=== PATIENT | male | born 1995 | race Caucasian/White ===

== ENCOUNTER 2016-12-05 11:31 | Emergency (ER) | payer BC ==
[2016-12-05 12:06] VITALS: BP 107/63
[2016-12-05] MEDS ORDERED: Amoxicillin/Clavulanate TAB* 875 MG PO ONE (12:16)
--- NOTE | 2016-12-05 12:18 | UC ---
Bite Injury/Animal HPI - HPI Summary HPI Summary: cat bite yesterday day to right thumb---red warm and swollen nom no streaking + ROM - History of Current Complaint Chief Complaint: UC Stated Complaint: CAT BIT TO HAND Time Seen by Provider: 12/05/16 12:09 Hx Obtained From: Patient Severity Currently: Mild Severity Initially: Moderate Pain Intensity: 5 Pain Scale Used: 0-10 Numeric Onset/Duration: Sudden Onset, Lasting Days - 1, Still Present Type of Bite: Animal Has Animal Been Immunized?: Yes Character: Puncture Aggravating Factor(s): Exertion Alleviating Factor(s): Rest Associated Signs And Symptoms: Positive: Erythema. Negative: Lymphadenopathy Hx of Bite: Provoked by: - trying to put cat outside Animal Available for Observation: Yes Animal Control Notified: Yes - Allergies/Home Medications Allergies/Adverse Reactions: Allergies Allergy/AdvReac Type Severity Reaction Status Date / Time No Known Allergies Allergy Verified 12/05/16 11:59 PMH/Surg Hx/FS Hx/Imm Hx Previously Healthy: Yes - Surgical History Surgical History: None - Family History Known Family History: Positive: Unknown - unable to obtain, patient is manic and intoxicated - Social History Occupation: Employed Full-time Lives: With Family Alcohol Use: Occasionally Alcohol Amount: unknown Substance Use Type: Other Substance Use Comment - Amount & Last Used: not currently Smoking Status (MU): Former Smoker - Immunization History Most Recent Influenza Vaccination: doesn't get Review of Systems Constitutional: Negative Skin: Other - redness and swelling right thumb Eyes: Negative ENT: Negative Respiratory: Negative Cardiovascular: Negative Gastrointestinal: Negative Genitourinary: Negative Motor: Negative Neurovascular: Negative Musculoskeletal: Arthralgia - right thumb Neurological: Negative Psychological: Negative All Other Systems Reviewed And Are Negative: Yes Physical Exam Triage Information Reviewed: Yes Appearance: Well-Appearing, No Pain Distress, Well-Nourished Vital Signs: Initial Vital Signs Temp 98.4 F 12/05/16 12:00 Pulse 83 12/05/16 12:00 Resp 17 12/05/16 12:00 BP 107/63 12/05/16 12:00 Pulse Ox 99 12/05/16 12:00 Vital Signs Reviewed: Yes Eye Exam: Normal Eyes: Positive: Conjunctiva Clear ENT Exam: Normal ENT: Positive: Normal ENT inspection, Hearing grossly normal, Pharynx normal, Pharyngeal erythema, TMs normal, Tonsillar swelling, Tonsillar exudate, Trismus , Muffled/hoarse voice. Negative: Nasal congestion, Nasal drainage, TM bulging Dental Exam: Normal Neck exam: Normal Neck: Positive: Supple, Nontender, No Lymphadenopathy Respiratory Exam: Normal Respiratory: Positive: Chest non-tender, Lungs clear, Normal breath sounds, No respiratory distress, No accessory muscle use Cardiovascular Exam: Normal Cardiovascular: Positive: RRR, No Murmur, Pulses Normal, Brisk Capillary Refill Abdominal Exam: Normal Abdomen Description: Positive: Nontender, No Organomegaly, Soft Musculoskeletal Exam: Other Musculoskeletal: Positive: ROM Intact, Strength Limited @ - right thumb, Edema @ - right thumb Neurological Exam: Normal Neurological: Positive: Alert, Muscle Tone Normal Psychological Exam: Normal Skin: Positive: Other - two punture wound on thenar eminence Bite Injury Course/Dx - Course Course Of Treatment: splint heat, warm soaks, augmentin, (tetnus up to date), follow with orthopedic med - Differential Dx/Diagnosis Differential Diagnosis/HQI/PQRI: Cellulitis, Joint Space Infection, Puncture, Superficial Infection, Deep Space Infection Provider Diagnoses: Punture wound from cat bite right hand, Discharge - Discharge Plan Condition: Stable Disposition: HOME Prescriptions: Amoxicillin/Clavulanate TAB* [Augmentin TAB 875*] 875 mg PO BID #19 tab Patient Education Materials: Amoxicillin/Clavulanate Potassium (By mouth), Animal Bite (ED), Heat Pack Application (ED) Referrals: Tess Marquez MD [Medical Doctor] - 3 Days Gallo Cristobal MD [Primary Care Provider] -
== END 2016-12-05 12:30 | disposition home or self-care (01) ==
LOC: UCEAST 11:31
DX: S61.031A Puncture wound without foreign body of right thumb without damage to nail, initial encounter (principal); W55.01XA Bitten by cat, initial encounter; Z87.891 Personal history of nicotine dependence
CPT/HCPCS: 99213; A9270-GY; G0463

== ENCOUNTER 2020-02-07 16:34 | Inpatient (IN) | payer BC, OTHER ==
--- NOTE | 2020-02-07 16:48 | ED ---
Psychiatric Complaint - HPI Summary HPI Summary: 24 y/o M [place] [facility] [place] Dr. Arndt who knows patient's mother. Patient has been very tangential and psychotic recently. Mother brought patient here to be evaluated. Upon arrival to the ED, patient refused to get out of car. Dr. Arndt placed patient on 55 status. LEVEL 5 CAVEAT Further hx is limited as patient is tangential and refusing to participate. - History Of Current Complaint Chief Complaint: EDMentalHealth Time Seen by Provider: 02/07/20 16:35 Hx Obtained From: Other: - Dr. Arndt Onset/Duration: Still Present - Allergies/Home Medications Allergies/Adverse Reactions: Allergies Allergy/AdvReac Type Severity Reaction Status Date / Time No Known Allergies Allergy Verified 12/05/16 11:59 Home Medications: Home Medications Unobtainable 02/07/20 [History Confirmed 02/07/20] PMH/Surg Hx/FS Hx/Imm Hx Previously Healthy: No - LEV 5 CAV PMHx is limited b/c patient is tangential, refusing to participat - Surgical History Surgery Procedure, Year, and Place: LEVEL 5 CAVEAT Surgical hx is limited as patient is tangential and refusing to participate in conversation - Immunization History Date of Influenza Vaccine: no Infectious Disease History: No Infectious Disease History: Denies: Traveled Outside the [place] in Last 30 Days - Family History Family History: LEVEL 5 CAVEAT FHx is limited as patient is tangential and refusing to participate in conversation - Social History Alcohol Use: Occasionally Hx Substance Use: Yes Substance Use Type: Reports: Cocaine, Marijuana Smoking Status (MU): Unknown if Ever Smoked Review of Systems - ROS Summary Review of Systems Summary: LEVEL 5 CAVEAT ROS is limited as patient is tangential and refusing to participate Positive: Other - tangential and psychotic All Other Systems Reviewed And Are Negative: No Physical Exam - Summary Physical Exam Summary: General: Well appearing, no distress HEENT: PERRL Cardiovascular: Skin is well perfused Pulmonary: No respiratory distress, no tachypnea Abdomen: Non-distended Skin: Warm, pink, dry MSK: No edema Psych: Pressured speech, tangential Neuro: A&Ox3 Triage Information Reviewed: Yes Vital Signs On Initial Exam: Initial Vitals Temp Pulse Resp BP Pulse Ox 98.5 F 86 18 165/96 98 02/07/20 16:36 02/07/20 16:36 02/07/20 16:36 02/07/20 16:36 02/07/20 16:36 Vital Signs Reviewed: Yes Procedures - Sedation Patient Received Moderate/Deep Sedation with Procedure: No Diagnostics - Vital Signs Vital Signs Temp Pulse Resp BP Pulse Ox 02/07/20 16:36 98.5 F 86 18 165/96 98 - Laboratory Result Diagrams: 02/07/20 16:41 Lab Statement: Any lab studies that have been ordered have been reviewed, and results considered in the medical decision making process. Re-Evaluation - Re-Evaluation First Eval Re-Evaluation Time: 16:45 - Patient is medically cleared for MHE Course/Dx - Course Course Of Treatment: Patient presenting for mental health clearance. Patient has no active medical conditions warrantly further w/u, vital signs are stable. Patient placed in mental health gown and placed on observation. We'll obtain mental health evaluation. - Differential Dx/Clinical Impression Provider Diagnosis: Unspecified psychosis - Physician Notifications Discussed Care Of Patient With: Lazaro Arndt Time Discussed With Above Provider: 16:52 Instructed by Provider To: Admit As Inpatient - Critical Care Time Critical Care Statement: Critical care time is provided exclusive of any time spent performing procedures. Discharge ED - Sign-Out/Discharge Documenting (check all that apply): Patient Departure - Discharge Plan Condition: Stable [place] [place]errals: Rashad Fleming, HAND PICKER [Primary Care Provider] - - Billing Disposition and Condition Condition: STABLE Disposition: [place]iatric [place] [facility] [place] Attestation Statements Document Initiated by Scribe: Yes Documenting Scribe: Audra Mariee Provider For Whom Aditya is Documenting (Include Credential): Raul Braxton MD Scribe Attestation: Audra Mg, scribed for Raul Braxton MD on 02/07/20 at 1741. Scribe Documentation Reviewed: Yes Provider Attestation: The documentation as recorded by the Audra navarro accurately reflects the service I personally performed and the decisions made by ny, Raul Braxton MD Status of Scribe Document: Viewed
[2020-02-07] MEDS ORDERED: Acetaminophen TAB* 325 MG PO PRN (16:52)
[2020-02-07] MEDS ORDERED: Al Hydrox/Mg Hydrox/Simet LIQ* 30 ML UDC PO PRN (16:52)
[2020-02-07 17:17] LABS: Urine Appearance Clear; Urine Bilirubin Negative (Negative); Urine Blood Negative (Negative); Urine Color Colorless; Urine Glucose Negative (Negative); Urine Ketones Trace (Negative); Urine Nitrite Negative (Negative); Urine Protein Negative (Negative); Urine Specific Gravity 1.001 (1.010-1.030); Urine Urobilinogen Negative (Negative)
[2020-02-07 17:25] LABS: ABS Lymphocytes 1.4 10^3/ul (1.0-4.8); ABS Monocytes 0.8 10^3/ul (0-0.8); ABS Neutrophils 4.6 10^3/ul (1.5-7.7); Eosinophil % 0.4 %; Hematocrit 43 % (42-52); Hemoglobin 14.8 g/dL (14.0-18.0); Lymphocyte % 20.8 %; Mean Corpuscular HGB Conc 34 g/dL (31-36); Mean Corpuscular Hemoglobin 32 pg (27-31); Mean Corpuscular Volume 94 fL (80-94); Mean Platelet Volume 8.3 fL (7.4-10.4); Platelet Count 244 10^3/uL (150-450); Red Blood Count 4.58 10^6 /uL (4.18-5.48); Red Cell Distribution Width 13 % (10-15); White Blood Count 6.8 10^3/uL (3.5-10.8)
[2020-02-07 17:32] LABS: Urine Benzodiazepine Screen None Detected (None Detect); Urine Opiates Screen None Detected (None Detect)
[2020-02-07 17:42] LABS: ALT 15 U/L (7-52); AST 26 U/L (13-39); Albumin 4.5 g/dL (3.2-5.2); Albumin/Globulin Ratio 1.7 (1-3); Alkaline Phosphatase 51 U/L (34-104); Anion Gap 8 mmol/L (2-11); BUN/Creatinine Ratio 10.8 (8-20); Blood Urea Nitrogen 7 mg/dL (6-24); CO2 Carbon Dioxide 27 mmol/L (22-32); Calcium 9.1 mg/dL (8.6-10.3); Chloride 101 mmol/L (101-111); EGFR African American 181.1 (>60); EGFR Non-African American 149.7 (>60); Globulin 2.6 g/dL (2-4); Glucose 95 mg/dL (70-100); Potassium 3.7 mmol/L (3.5-5.0); Sodium 136 mmol/L (135-145); Total Protein 7.1 g/dL (6.4-8.9)
[2020-02-07 17:59] LABS: Acetaminophen < 15 mcg/mL; Alcohol < 10 mg/dL (<10); Salicylate < 2.50 mg/dL (<30)
[2020-02-07 18:13] LABS: TSH (Thyroid Stimulating Horm) 0.61 mcIU/mL (0.34-5.60)
[2020-02-07] MEDS: Haloperidol TAB* 5 MG PO PRN (20:39)
[2020-02-07] MEDS: LORazepam TAB(*) 1 MG PO PRN (22:12)
[2020-02-07] MEDS: diPHENhydraMINE PO* 50 MG PO PRN (22:13)
[2020-02-08 08:04] LABS: HDL Cholesterol 54.1 mg/dL
[2020-02-08] MEDS: diPHENhydraMINE PO* 50 MG PO PRN (12:00)
[2020-02-08] MEDS: LORazepam TAB(*) 1 MG PO PRN (12:00)
[2020-02-08] MEDS: Haloperidol TAB* 5 MG PO PRN (12:00)
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
--- NOTE | 2020-02-09 11:25 | PN ---
Subjective - Subjective Date of Service: 02/09/20 Service Type: 00168 Hosp care 25 min moderate complexity Subjective: Lexie appears much more euthymic today and has some insight into his recent bizarre behavior. "Yeah, I'm not sure what happened. I know I slowly got caught up in my head and started spiraling downward. It happened so slow that it's like I didn't even notice it happening." He is aware that this is the 3rd psychotic episode of his adulthood and shows appropriate concern for that. He is not interested in prophylactic antipsychotic treatment and also declines psychotherapy, saying "I'm not sure I want to go through a process like that to rewire my head. I feel like I've been rewired enough from this experience." He is willing to discontinue cannabis use, however, saying "I'll go throw it in the byers if you say that's what will help." In terms of precipitating stressors , he acknowledges that the recent of his maternal grandfather was a huge blow to him. "I spent so much time with him. He was always there for me." Lexie misses his grandfather a great deal and becomes tearful discussing his passing. Objective - General Observations Appearance: Well Groomed Appears Stated Age: Yes Stature: WNL Posture: WNL Eye Contact: Average Behavior/Activity: WNL - Interaction Observations Attitude Towards Examiner: Cooperative Stated Mood: Euthymic Affect: Full Speech Pattern/Tone: Clear, Appropriate Thought Process: Coherent Perception: WNL Thought Content: WNL Hallucination Type: None Delusion Type: None - Cognitive Function Orientation: A&O x 4 Level of Consciousness: Awake Cognition: WNL Estimated Intelligence: Normal Insight: WNL Judgment Within Normal Limits: Yes - Medication Compliance Cooperative with Inpatient Medication Regimen: Yes - Group Participation Participates in Group Activities: Yes Assessment - Assessment Merits Inpatient Hospitalization: Consolidate Improvements, Pending Safe DC Plan Inpatient DSM-V Dx: F29 Clinical Impression: 24 y.o. single, white male with a history of two prior brief psychotic episodes brought to the hospital by his mother and placed on a 9.55 involuntary legal status due to several days of bizarre, disorganized behavior. BSU: Problem List - Patient Problems (1) Unspecified psychosis not due to a substance or known physiological condition Current Visit: Yes Status: Acute Priority: High Code(s): F29 - UNSP PSYCHOSIS NOT DUE TO A SUBSTANCE OR KNOWN PHYSIOL COND SNOMED Code(s): 852309104 Plan - Plan Treatment Plan: Name: LEXIE BASILIO Birthdate: 1995 [id number] The patient is improving without scheduled antipsychotic, which is consistent with his history of recovering spontaneously from previous episodes. We will target tomorrow (02/09) for discharge if he continues on this trajectory. He should consider stopping cannabis usage and starting outpatient psychotherapy to prevent future relapses. Continued Medication Management: Consider Medication Medications: Current Medications Acetaminophen (Tylenol Tab*) 650 mg PO Q4H PRN PRN Reason: for pain; or Temp >101 F Al Hydrox/Mg Hydrox/Simethicone (Maalox Plus*) 30 ml PO Q4H PRN PRN Reason: INDIGESTION Diphenhydramine HCl (Benadryl Po*) 50 mg PO Q6H PRN PRN Reason: AGITATION Last Admin: 02/08/20 12:00 Dose: 50 mg Haloperidol (Haldol Tab*) 5 mg PO Q6H PRN PRN Reason: AGITATION Last Admin: 02/08/20 12:00 Dose: 5 mg Lorazepam (Ativan Tab(*)) 2 mg PO Q6H PRN PRN Reason: ANXIETY Last Admin: 02/08/20 12:00 Dose: 2 mg - Discharge Plan Discharge Plan: Outpatient Follow Up
--- NOTE | 2020-02-09 13:48 | PN ---
BSU: Group Therapy Note - Service Type Service Type: 91732 Group Psychotherapy - Cognitive Behavioral Group Therapy ( CBT):Patient was attentive and participatory in CBT programming this morning, and remained in good behavioral control. Patient expressed positive insights regarding relevant treatment interventions and goals.
[2020-02-10] MEDS: Haloperidol TAB* 5 MG PO PRN (08:40)
[2020-02-10] MEDS: diPHENhydraMINE PO* 50 MG PO PRN (08:40)
[2020-02-10] MEDS: LORazepam TAB(*) 1 MG PO PRN (08:40)
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
[2020-02-10] MEDS ORDERED: Nicotine PATCH 14 MG/24 HR* PATCH ONE (18:09)
[2020-02-10] MEDS ORDERED: Nicotine* 2MG (FRUIT FLAVOR) GUM PO PRN (18:31)
[2020-02-11] MEDS: Nicotine PATCH 14 MG/24 HR* PATCH TRANSDERM SCH (09:24)
--- NOTE | 2020-02-11 15:41 | PN ---
Subjective - Subjective Date of Service: 02/11/20 Service Type: 42680 Hosp care 25 min moderate complexity Subjective: Lexie was seen in his room. He was standing in the middle of his room with a piece of paper and paid very little attention to me. Asked whether I was a psychiatrist. Then he told me he didn't believe in [employer] science and wanted me to leave as he had nothing to talk about. Objective - General Observations Appearance: Disheveled Appears Stated Age: Yes Stature: Tall Posture: WNL Eye Contact: Avoidant Behavior/Activity: Peculiar - Interaction Observations Attitude Towards Examiner: Uncooperative, Evasive, Dismissive Stated Mood: Dysphoric Affect: Restricted Speech Pattern/Tone: Inappropriate Thought Process: Disorganized Perception: WNL Thought Content: Paranoid Hallucination Type: Denies Delusion Type: Grandeur - Cognitive Function Orientation: Person, Place, Situation Level of Consciousness: Awake, Alert Cognition: Impaired Attention/Concentration Estimated Intelligence: Normal Insight: Difficulty Acknowledging Presence of Psyciatric Problems Judgment Within Normal Limits: No Ability to Make Reasonable Decisions: Serverely Impaired - Medication Compliance Cooperative with Inpatient Medication Regimen: No - Group Participation Participates in Group Activities: No Assessment - Assessment Merits Inpatient Hospitalization: For Ongoing Evaluation, Consolidate Improvements, Pending Safe DC Plan Inpatient DSM-V Dx: F29 Clinical Impression: 24 y.o. single, white male with a history of two prior brief psychotic episodes brought to the hospital by his mother and placed on a 9.55 involuntary legal status due to several days of bizarre, disorganized behavior. Plan - Plan Treatment Plan: Name: LEXIE BASILIO Birthdate: 1995 [id number] The patient remains intermittently psychotic and bizarre. His previous episodes spontaneously resolved so we are treating conservatively with only prn meds. We will target Thursday (02/12) for discharge if he improves over the weekend. He should consider stopping cannabis usage and starting outpatient psychotherapy to prevent future relapses. Continued Medication Management: Consider Medication Medications: Current Medications Acetaminophen (Tylenol Tab*) 650 mg PO Q4H PRN PRN Reason: for pain; or Temp >101 F Al Hydrox/Mg Hydrox/Simethicone (Maalox Plus*) 30 ml PO Q4H PRN PRN Reason: INDIGESTION Diphenhydramine HCl (Benadryl Po*) 50 mg PO Q6H PRN PRN Reason: AGITATION Last Admin: 02/10/20 08:40 Dose: 50 mg Haloperidol (Haldol Tab*) 5 mg PO Q6H PRN PRN Reason: AGITATION Last Admin: 02/10/20 08:40 Dose: 5 mg Lorazepam (Ativan Tab(*)) 2 mg PO Q6H PRN PRN Reason: ANXIETY Last Admin: 02/10/20 08:40 Dose: 2 mg Nicotine (Nicotine Patch 14 Mg/24 Hr*) 1 patch TRANSDERM DAILY [facility] Last Admin: 02/11/20 09:24 Dose: Not Given Nicotine Polacrilex (Nicotine Gum*) 2 mg PO Q2H PRN PRN Reason: CRAVING Pharmacy Profile Note (Nicotine Patch Removal Note*) 1 note PATCH OFF [address] [facility] - Discharge Plan Discharge Plan: Outpatient Follow Up [facility]
[2020-02-11] MEDS: Nicotine Patch Removal NOTE PATCH OFF SCH (20:03)
[2020-02-11] MEDS: diPHENhydraMINE PO* 50 MG PO PRN (22:59)
[2020-02-11] MEDS: LORazepam TAB(*) 1 MG PO PRN (22:59)
[2020-02-11] MEDS: Haloperidol TAB* 5 MG PO PRN (22:59)
[2020-02-12] MEDS: Nicotine PATCH 14 MG/24 HR* PATCH TRANSDERM SCH (09:05)
[2020-02-12] MEDS: diPHENhydraMINE PO* 50 MG PO PRN (16:03)
[2020-02-12] MEDS: LORazepam TAB(*) 1 MG PO PRN (16:04)
[2020-02-12] MEDS: Haloperidol TAB* 5 MG PO PRN (16:05)
[2020-02-12] MEDS: Nicotine Patch Removal NOTE PATCH OFF SCH (21:32)
[2020-02-13 08:03] VITALS: BP 122/82
[2020-02-13] MEDS: Nicotine PATCH 14 MG/24 HR* PATCH TRANSDERM SCH (11:16)
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
== END 2020-02-13 15:00 | disposition home or self-care (01) | DRG 751 ==
LOC: ED 16:34 → BSU 16:52
PROVIDERS: ADMIT Psychiatry & Neurology Psychiatry; ATTEND Psychiatry & Neurology Psychiatry
DX: F29 Unspecified psychosis not due to a substance or known physiological condition (principal); F12.90 Cannabis use, unspecified, uncomplicated; Z81.8 Family history of other mental and behavioral disorders
CPT/HCPCS: 36415; 80053; 80061; 80307; 80320; 80329; 81003; 83036; 84443; 85025; 90853; 99222; 99231; 99232; 99238; 99284; A9270-GY; G0480

== ENCOUNTER 2020-02-14 05:18 | Inpatient (IN) ==
[2020-02-14 05:51] LABS: ABS Basophils 0.1 10^3/ul (0-0.2); ABS Eosinophils 0.2 10^3/ul (0-0.6); ABS Lymphocytes 1.9 10^3/ul (1.0-4.8); Eosinophil % 2.1 %; Hematocrit 44 % (42-52); Hemoglobin 15.1 g/dL (14.0-18.0); Lymphocyte % 19.7 %; Mean Corpuscular HGB Conc 34 g/dL (31-36); Mean Corpuscular Hemoglobin 33 pg (27-31); Mean Corpuscular Volume 95 fL (80-94); Mean Platelet Volume 8.3 fL (7.4-10.4); Platelet Count 254 10^3/uL (150-450); Red Blood Count 4.62 10^6 /uL (4.18-5.48); Red Cell Distribution Width 13 % (10-15); White Blood Count 9.6 10^3/uL (3.5-10.8)
[2020-02-14 06:16] LABS: ALT 11 U/L (7-52); Albumin/Globulin Ratio 1.5 (1-3); Alkaline Phosphatase 44 U/L (34-104); BUN/Creatinine Ratio 15.6 (8-20); Blood Urea Nitrogen 22 mg/dL (6-24); CO2 Carbon Dioxide 26 mmol/L (22-32); Calcium 8.6 mg/dL (8.6-10.3); Chloride 104 mmol/L (101-111); EGFR African American 74.1 (>60); EGFR Non-African American 61.2 (>60); Globulin 2.6 g/dL (2-4); Glucose 97 mg/dL (70-100); Sodium 137 mmol/L (135-145); Total Protein 6.6 g/dL (6.4-8.9)
[2020-02-14 06:35] LABS: Acetaminophen < 15 mcg/mL; Alcohol, S < 10 mg/dL (<10); Salicylate < 2.50 mg/dL (<30)
[2020-02-14 06:47] LABS: Anion Gap 7 mmol/L (2-11); Potassium 4.4 mmol/L (3.5-5.0)
[2020-02-14 07:13] LABS: AST 14 U/L (13-39)
[2020-02-14 08:04] LABS: Urine Appearance Clear; Urine Bilirubin Negative (Negative); Urine Blood Negative (Negative); Urine Color Colorless; Urine Glucose Negative (Negative); Urine Ketones Negative (Negative); Urine Nitrite Negative (Negative); Urine Protein Negative (Negative); Urine Specific Gravity 1.003 (1.010-1.030); Urine Urobilinogen Negative (Negative)
[2020-02-14 08:14] LABS: Urine Benzodiazepine Screen None Detected (None Detect); Urine Opiates Screen None Detected (None Detect)
[2020-02-14 08:29] LABS: TSH (Thyroid Stimulating Horm) 0.72 mcIU/mL (0.34-5.60)
[2020-02-14] MEDS ORDERED: LORazepam 2 mg VIAL 1 ml IM ONE (09:06)
[2020-02-14] MEDS ORDERED: Haloperidol 5 mg/ml SDV IV/IM 5 MG/ML AMP IM ONE (09:06)
[2020-02-14] MEDS ORDERED: diPHENhydraMINE IV 50 MG/ML 1 ml VIAL (BENADRYL) IM ONE (09:06)
[2020-02-14] MEDS ORDERED: Lorazepam PYXIS KEY PRN (09:06)
[2020-02-14] MEDS ORDERED: Lorazepam PYXIS KEY ONE (09:12)
[2020-02-14] MEDS ORDERED: Al Hydrox/Mg Hydrox/Simet LIQ 30 ML UDC PO PRN (09:57)
[2020-02-14] MEDS ORDERED: LORazepam 1 mg TAB (*) PO PRN (09:59)
[2020-02-20 08:17] VITALS: BP 127/72
== END 2020-02-20 14:00 | disposition home or self-care (01) | DRG 753 ==
LOC: ED 05:18 → BSU 09:57
PROVIDERS: ADMIT Psychiatry & Neurology Psychiatry; ATTEND Psychiatry & Neurology Psychiatry